=== PATIENT | female | born 1985 | race Caucasian/White ===

== ENCOUNTER 2017-06-07 10:00 | Inpatient (IN) | payer OTHER ==
[2017-06-07 10:50] LABS: ROM Internal QC QC Line Present
[2017-06-07] MEDS ORDERED: ceFAZolin 2 GM PREMIX (*) 50 ML IVPB ONE (11:22)
[2017-06-07] MEDS ORDERED: Buffered Lidocaine 0.9% SYRIN* 5 ML/SYR SYRINGE ONE (11:37)
[2017-06-07 12:18] LABS: Hematocrit 39 % (35-47); Hemoglobin 13.7 g/dl (12.0-16.0); Mean Corpuscular HGB Conc 35 g/dl (31-36); Mean Corpuscular Hemoglobin 32 pg (27-31); Mean Corpuscular Volume 93 fL (80-97); Mean Platelet Volume 10 um3 (7.4-10.4); Red Blood Count 4.25 10^6/ul (4.0-5.4); Red Cell Distribution Width 14 % (10.5-15); White Blood Count 13.9 10^3/ul (3.5-10.8)
[2017-06-07 12:26] LABS: Urine Bilirubin Negative (Negative); Urine Glucose Negative (Negative); Urine Nitrite Negative (Negative)
[2017-06-07 12:43] LABS: Albumin 3.6 g/dL (3.2-5.2); BUN/Creatinine Ratio 18.9 (8-20); Calcium 8.7 mg/dL (8.6-10.3); EGFR Non-African American 134.6 (>60); Globulin 2.5 g/dL (2-4); Potassium 3.9 mmol/L (3.5-5.0); Total Bilirubin 0.8 mg/dL (0.2-1.0); Total Protein 6.1 g/dL (6.4-8.9); Uric Acid 6.6 mg/dL (2.3-6.6)
[2017-06-07] MEDS ORDERED: OXYTOCIN* 10 UNITS/ML 1 ML VIAL ONE (13:12)
[2017-06-07] MEDS ORDERED: Morphine PF AMP (0.5MG/ML)* 5 MG/10 ML AMP ONE (13:12)
[2017-06-07] MEDS ORDERED: Phenylephrine IV* 40 MCG/ML 10 ML SYRINGE ONE (13:59)
[2017-06-07] MEDS ORDERED: Naloxone* 2 MG in NS 0.9% 250 ML* 250 ML IV PRN (14:02)
[2017-06-07] MEDS ORDERED: Nalbuphine* 20 MG/ML 1 ML VIAL IV PRN ×2 (14:02)
[2017-06-07] MEDS ORDERED: DiMENhydriNATE IV* 50 MG/ML VIAL IV PUSH PRN ×2 (14:02→14:04)
[2017-06-07] MEDS ORDERED: Naloxone* 0.4 MG/ML 1 ML VIAL IV PRN (14:02)
[2017-06-07] MEDS ORDERED: diPHENhydraMINE IV* 50 MG/ML 1 ml VIAL (BENADRYL) IV PRN (14:02)
[2017-06-07] MEDS ORDERED: Ondansetron INJ* 2 MG/ML VIAL IV PRN ×2 (14:02→14:04)
[2017-06-07] MEDS ORDERED: oxyCODONE/Acetamin 5/325 MG* TAB PO PRN (14:02)
[2017-06-07] MEDS ORDERED: oxyCODONE TAB* 5 MG TAB PO PRN (14:04)
[2017-06-07] MEDS ORDERED: Ketorolac INJ* 30 MG/ML 1 ML VIAL ONE (14:04)
[2017-06-07] MEDS ORDERED: fentaNYL* 50 MCG/ML 2 ML VIAL (100 MCG VIAL) IV PRN (14:04)
[2017-06-07] MEDS ORDERED: Dibucaine 1% 28.35 GM TUBE PR PRN (14:50)
[2017-06-07] MEDS ORDERED: Witch Hazel PAD* JAR TOPICAL PRN (14:50)
[2017-06-07] MEDS ORDERED: Acetaminophen TAB* 325 MG PO PRN (14:50)
[2017-06-07] MEDS ORDERED: Glycerin ADULT SUPP PR PRN (14:50)
[2017-06-07] MEDS ORDERED: Oxytocin in LR* 20 UNITS/1,000 ML BAG IVPB ONE (14:58)
[2017-06-07] MEDS: HYDROcodone/ACETAMIN 5-325 MG* 1 TAB PO PRN ×2 (16:57→20:39)
[2017-06-07] MEDS: Ketorolac INJ* 30 MG/ML 1 ML VIAL IV PRN (20:29)
[2017-06-07] MEDS: Docusate CAP* 100 MG PO SCH (20:29)
[2017-06-07] MEDS: Simethicone TAB* 80 MG TAB.CHEW PO SCH (20:29)
[2017-06-08] MEDS: HYDROcodone/ACETAMIN 5-325 MG* 1 TAB PO PRN ×2 (00:34→03:56)
[2017-06-08] MEDS ORDERED: oxyCODONE/Acetamin 5/325 MG* TAB PO PRN (05:00)
--- NOTE | 2017-06-08 05:39 | OP ---
Amended report to correct patient account number. OPERATIVE NOTE: DATE OF OPERATION: 06/07/17 - [id number] DATE OF : [birth year] SURGEON: Amber Wilson MD PSYCHIATRIC CNS: Tiesha Erazo CM. ANESTHESIOLOGIST: Prince Bishop MD. ANESTHESIA: Spinal. PRE-OP DIAGNOSIS: Intrauterine gestation at 38 and 6 weeks gestational age, rupture of membranes, prior section, desires permanent sterilization. POST-OP DIAGNOSIS: Intrauterine gestation 38 and 6 weeks gestational age, rupture of membranes, prior section, desires permanent sterilization. OPERATIVE PROCEDURE: Repeat lower transverse section and bilateral tubal ligation. ESTIMATED BLOOD LOSS: 600 mL. FLUIDS: Crystalloid. COMPLICATIONS: None. COUNTS: Correct. FINDINGS: Female infant, 8 pounds 1 ounce, 9 and 9 Apgars, normal-appearing placenta, normal-appearing uterus, ovaries, and tubes. DESCRIPTION OF PROCEDURE: After informed consent was signed, the patient was taken to the operating room where she was given spinal anesthesia that was found to be adequate. She was prepped and draped in dorsal supine position with a leftward tilt. Pfannenstiel skin incision was made with a scalpel and carried down to the underlying layer of fascia with the scalpel. The fascia was incised on either side of the midline and the fascial incision extended laterally with Brasher scissors. The inferior edge of the fascial incision was grasped with Garett clamps, tented up and dissected down with sharp dissection. The superior edge of the fascial incision was then grasped with Garett clamps , tented up and dissected down with sharp dissection. The rectus muscles were already . The peritoneum was then entered bluntly. The peritoneal incision was extended laterally with blunt dissection. Bladder blade was inserted and a transverse incision was made in the lower uterine segment with a scalpel. The incision was extended superiorly and inferiorly with blunt pressure. The infant's head was then delivered followed by the shoulders and the rest of the body. The cord was milked towards the baby and after more than 30 seconds, it was clamped x2 and cut. Baby was handed to the dielectric machine operator. The placenta was delivered with fundal massage and gentle cord traction. The uterus was then exteriorized and cleared of clots and debris. The uterine incision was closed with 0 Vicryl in a running locked fashion with the second layer of suture imbricating the first. Attention was then turned to the patient 's tube. The right tube was grasped with 2 Aster clamps across the distal portion of the tube and the fimbriated end was suture ligated x2 with a 0 plain suture. The clamps were removed and the fimbriated end of the tube was removed with Metzenbaum scissors. Good hemostasis was noted. The same procedure was repeated on the patient's left side and good hemostasis was noted once again. The uterus was then placed back in abdominal cavity and the abdomen was also irrigated. There was some generalized oozing over the right side of the uterine incision where an adhesion had been. Two [id number] sutures were placed over this area with good hemostasis. The site of each tubal was inspected and also noted to be hemostatic. The uterine incision was also hemostatic. The peritoneum was then closed with 3-0 chromic in a running unlocked fashion, and a fascial incision was closed with 0 Vicryl in a running unlocked fashion. The skin was closed with 4-0 Monocryl in a running subcuticular fashion. Mastisol and Steri-Strips were placed. The incision was then cleaned and dressed. The patient was moved to the stretcher and taken to the recovery room in stable condition. [id number]/[facility] #: [id number] JARVIS
[2017-06-08] MEDS: Ketorolac INJ* 30 MG/ML 1 ML VIAL IV PRN (07:01)
[2017-06-08 07:38] LABS: Hematocrit 36 % (35-47); Hemoglobin 12.5 g/dl (12.0-16.0); Mean Corpuscular HGB Conc 35 g/dl (31-36); Mean Corpuscular Hemoglobin 32 pg (27-31); Mean Corpuscular Volume 93 fL (80-97); Mean Platelet Volume 11 um3 (7.4-10.4); Red Blood Count 3.89 10^6/ul (4.0-5.4); Red Cell Distribution Width 14 % (10.5-15); White Blood Count 18.7 10^3/ul (3.5-10.8)
[2017-06-08] MEDS: oxyCODONE/Acetamin 5/325 MG* TAB PO PRN ×3 (07:41→17:10)
[2017-06-08] MEDS: Simethicone TAB* 80 MG TAB.CHEW PO SCH ×4 (08:40→20:40)
[2017-06-08] MEDS: Docusate CAP* 100 MG PO SCH ×3 (08:40→20:40)
[2017-06-08] MEDS: Ferrous Gluconate TAB* 324 MG TAB PO SCH ×2 (09:00→21:12)
[2017-06-08] MEDS: Ibuprofen TAB* 600 MG PO PRN ×2 (14:34→20:40)
[2017-06-08 19:41] VITALS: BP 134/84
[2017-06-09] MEDS: oxyCODONE/Acetamin 5/325 MG* TAB PO PRN ×3 (02:18→12:19)
[2017-06-09] MEDS: Ibuprofen TAB* 600 MG PO PRN ×2 (04:10→12:20)
[2017-06-09] MEDS: Docusate CAP* 100 MG PO SCH (09:34)
[2017-06-09] MEDS: Simethicone TAB* 80 MG TAB.CHEW PO SCH ×2 (09:34→12:19)
== END 2017-06-09 15:45 | disposition home or self-care (01) | DRG 540 ==
LOC: MCHOBOUT 10:00 → MCHOB 11:02
PROVIDERS: ADMIT Obstetrics & Gynecology; ATTEND Obstetrics & Gynecology
PROC: 10D00Z1 Extraction of Products of Conception, Low, Open Approach (ICD-10-PCS; 2017-06-07)
PROC: 0UL70ZZ Occlusion of Bilateral Fallopian Tubes, Open Approach (ICD-10-PCS; 2017-06-07)
PROC: 4A1HX4Z Monitoring of Products of Conception, Cardiac Electrical Activity, External Approach (ICD-10-PCS; principal; 2017-06-07 13:14)
DX: O34.211 Maternal care for low transverse scar from previous cesarean delivery (principal); Z30.2 Encounter for sterilization; Z3A.39 39 weeks gestation of pregnancy; Z37.0 Single live birth
CPT/HCPCS: 36415; 80053; 81003; 84112; 84550; 85025; 86850; 86900; 86901; 88302; A9270-GY; J0690; J1885; J2590

== ENCOUNTER 2017-06-29 13:33 | Emergency (ER) | payer OTHER ==
[2017-06-29] MEDS ORDERED: Acetaminophen TAB* 325 MG PO ONE (13:46)
--- NOTE | 2017-06-29 14:53 | UC ---
HPI Febrile Illness - HPI Summary HPI Summary: This is a 32 yo female who is 3 weeks who presented with c/o ST, nausea and fever. Symptoms started yesterday evening. She is slightly achy. No vomiting or diarrhea. No cough or SOB. No abd pain. No drainage or erythema from CSection incision. No new vaginal discharge. Still spotting slightly. - History of Current Complaint Chief Complaint: UCRespiratory Hx Last Menstrual Period: 3 weeks post - Allergy/Home Medications Allergies/Adverse Reactions: Allergies Allergy/AdvReac Type Severity Reaction Status Date / Time No Known Allergies Allergy Verified 06/29/17 13:42 PMH/Surg Hx/FS Hx/Imm Hx Previously Healthy: Yes - 3 weeks post - Surgical History Surgical History: Yes Surgery Procedure, Year, and Place: 2012, 2016 C SECTION, [facility] - Family History Known Family History: Positive: None - Social History Alcohol Use: Rare Substance Use Type: None Smoking Status (MU): Former Smoker Type: Cigarettes Have You Smoked in the Last Year: No When Did the Patient Quit Smoking/Using Tobacco: 2010 APPROX - Immunization History Most Recent Influenza Vaccination: declined prenatally Most Recent Tetanus Shot: 07/24/13 Most Recent Pneumonia Vaccination: never Review of Systems Constitutional: Fever, Fatigue Skin: Negative Eyes: Negative ENT: Sore Throat Respiratory: Negative Cardiovascular: Negative Gastrointestinal: Nausea Genitourinary: Negative Motor: Negative Neurovascular: Negative Musculoskeletal: Negative Neurological: Negative Psychological: Negative Is Patient Immunocompromised?: No All Other Systems Reviewed And Are Negative: Yes Physical Exam Triage Information Reviewed: Yes Appearance: Ill-Appearing Vital Signs: Initial Vital Signs Temp 101.6 F 06/29/17 13:38 Pulse 110 06/29/17 13:38 Resp 20 06/29/17 13:38 BP 139/93 06/29/17 13:38 Pulse Ox 100 06/29/17 13:38 Vital Signs Reviewed: Yes ENT: Positive: Hearing grossly normal, Pharynx normal, TMs normal. Negative: Tonsillar swelling, Tonsillar exudate Neck: Positive: Supple, Nontender, No Lymphadenopathy Respiratory: Positive: Lungs clear. Negative: Crackles, Rhonchi, Wheezing Cardiovascular: Positive: RRR, No Murmur Abdomen Description: Positive: Nontender, Soft, Other: - incision site is well healed, no erythema or drainage Bowel Sounds: Positive: Present Musculoskeletal: Positive: Strength Intact Neurological Exam: Normal Neurological: Positive: Alert Psychological Exam: Normal Skin Exam: Normal Skin: Negative: rashes Diagnostics - Laboratory Diagnostic Studies Completed/Ordered: Rapid strep - neg. Rapid flu - neg Course/Dx - Course Assessment/Plan: This is a 32 yo female who is otherwise healthy but 3 weeks who presents with c/o fever, nausea and ST. Exam benign. Rapid flu and strep testing neg. Likely a viral syndrome - Febrile Illness Differential Diagnoses: GI Disease, Sepsis, Viremia - Diagnoses Clinic Provider Diagnoses: 1. Acute viral syndrome Discharge - Discharge Plan Condition: Stable Disposition: HOME Patient Education Materials: Viral Syndrome (ED) Referrals: Johny Moreau MD [Primary Care Provider] - If Needed Additional Instructions: Instructions: 1. You likely have a viral illness 2. Recommend rest and fluids 3. Use tylenol as needed for pain or fever
[2017-06-29 16:12] VITALS: BP 119/88
== END 2017-06-29 15:55 | disposition home or self-care (01) ==
LOC: UCEAST 13:33
DX: O90.89 Other complications of the puerperium, not elsewhere classified (principal)
CPT/HCPCS: 87502; 87651; 99212; A9270-GY; G0463

== ENCOUNTER 2018-05-18 09:06 | Day surgery (SDC) | payer OTHER ==
[~2018-05-18 09:06] MED LIST: Sodium Citrate/Citric Acid* 15 ML UDC PO ONE
[2018-05-18] MEDS ORDERED: Sodium Citrate/Citric Acid* 15 ML UDC ONE (09:38)
[2018-05-18] MEDS: Buffered Lidocaine 0.9% SYRIN* 5 ML/SYR SYRINGE INTRADERM ONE ×2 (09:50→09:53)
[2018-05-18] MEDS ORDERED: fentaNYL* 50 MCG/ML 2 ML VIAL (100 MCG VIAL) ONE ×4 (10:52→12:10)
[2018-05-18] MEDS ORDERED: Midazolam* 1 MG/ML 2 ML VIAL (2 MG) ONE ×2 (10:53→12:18)
[2018-05-18] MEDS ORDERED: Propofol* 10 MG/ML 20 ML BTL IV PUSH ONE (11:08)
[2018-05-18] MEDS ORDERED: Lidocaine 2% PF * 5 ML VIAL ONE (11:08)
[2018-05-18] MEDS ORDERED: Ondansetron INJ* 2 MG/ML VIAL IV PRN (11:27)
[2018-05-18] MEDS ORDERED: Naloxone* 0.4 MG/ML 1 ML VIAL IV PRN (11:27)
[2018-05-18] MEDS: fentaNYL* 50 MCG/ML 2 ML VIAL (100 MCG VIAL) IV PRN ×6 (11:53→12:33)
[2018-05-18] MEDS ORDERED: Ketorolac INJ* 30 MG/ML 1 ML VIAL ONE (12:37)
[2018-05-18] MEDS ORDERED: Labetalol IV* 5 MG/ML 20 ML VIAL ONE (13:07)
[2018-05-18 13:29] LABS: Hematocrit 40 % (35-47); Hemoglobin 13.7 g/dl (12.0-16.0)
[2018-05-18 14:46] VITALS: BP 134/96
--- NOTE | 2018-05-18 21:24 | OP ---
DATE OF OPERATION: 05/18/18 - [facility] DATE OF : 87 SURGEON: Edgardo Drake MD LABORATORY ANIMAL FACILITY SUPERVISOR: None. ANESTHESIA: General with endotracheal tube. PRE-OP DIAGNOSIS: Menorrhagia. POST-OP DIAGNOSIS: Menorrhagia. OPERATIVE PROCEDURE: D and C, hysteroscopy, and endometrial ablation. ESTIMATED BLOOD LOSS: Minimal. SPECIMEN: Includes endometrium. FINDINGS: Include a normal cavity and a very long cervix. DESCRIPTION OF PROCEDURE: The patient was identified, procedure identified as a D and C, hysteroscopy, and endometrial ablation, placed in the operating room , prepped and draped in the usual sterile fashion in the dorsal lithotomy position under general anesthesia. Two single-tooth tenaculums were placed on the anterior lip of the cervix. Uterus was sounded to 9 cm. On hysteroscopy, the above findings were noted. The cervix was then progressively dilated up to a #8 Hegar dilator. The internal cervix os was hard to determine based on the fact that her cervix was long, but based on the Hegar's, we got a cavity length of 5.5 and a cervical length of 3.5. The sharp curette was inserted and sharp curettage performed and a good specimen was obtained. The NovaSure device was opened. The array was checked. The NovaSure device was placed, it took several tries due to the narrow cervical cavity, but eventually with manipulation opened up to a cavity width of 4.5 with power setting of 136. The NovaSure CO2 perforation test was performed and the device passed. The device was enabled and NovaSure ablation took place for 1 minute 24 seconds. At the end of the procedure, device was removed and the hysteroscope was inserted and a good NovaSure ablation was found throughout the cavity. All instruments were removed from the vagina and all sponge and instrument counts were correct and the patient returned to recovery room in stable condition. [id number]/[facility] #: [id number] MTDD
== END 2018-05-18 14:49 | disposition home or self-care (01) ==
LOC: OR 09:06
PROVIDERS: ATTEND Obstetrics & Gynecology
DX: N92.0 Excessive and frequent menstruation with regular cycle (principal); F41.8 Other specified anxiety disorders
CPT/HCPCS: 36415; 81025; 85014; 85018; 88305; A9270-GY; J1885; J2250; J2704; J3010